=== PATIENT | female | born 1995 | race Caucasian/White ===

== ENCOUNTER 2019-04-21 15:42 | Emergency (ER) | payer BC ==
[2019-04-21 16:04] VITALS: BP 132/98
--- NOTE | 2019-04-21 16:24 | UC ---
UC General HPI - HPI Summary HPI Summary: has had diarrhea x 5 days, occasional nausea. she is able to eat bland foods and keep fluids down. no blood in stool.has had abdominal cramping. 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 - History of Current Complaint Chief Complaint: UCGI Stated Complaint: GI ISSUE Time Seen by Provider: 04/21/19 16:08 Hx Obtained From: Patient Hx Last Menstrual Period: 03/09/19 Onset/Duration: Gradual Onset Timing: Intermittent Episodes Lasting: Current Severity: None Pain Intensity: 0 Associated Signs & Symptoms: Positive: Diarrhea, Fever, Nausea. Negative: Dysuria, Decreased Oral Intake, Vomiting - Allergy/Home Medications Allergies/Adverse Reactions: Allergies Allergy/AdvReac Type Severity Reaction Status Date / Time shellfish derived Allergy Hives Verified 04/21/19 16:05 Home Medications: Home Medications Control Pill ? Name 1 tab PO DAILY 04/21/19 [History Confirmed 04/21/19] PMH/Surg Hx/FS Hx/Imm Hx Previously Healthy: Yes - Surgical History Surgical History: None - Social History Occupation: Student Lives: Dormitory/Roommates Alcohol Use: Occasionally Substance Use Type: None Smoking Status (MU): Never Smoked Tobacco Have You Smoked in the Last Year: No Review of Systems All Other Systems Reviewed And Are Negative: Yes Constitutional: Positive: Fever Skin: Positive: Negative. Negative: Rash Respiratory: Positive: Negative Cardiovascular: Positive: Negative Gastrointestinal: Positive: Diarrhea, Nausea Genitourinary: Positive: Negative Musculoskeletal: Positive: Negative. Negative: Arthralgia, Myalgia Neurological: Positive: Negative Psychological: Positive: Negative Is Patient Immunocompromised?: No Physical Exam Triage Information Reviewed: Yes Appearance: Well-Appearing, No Pain Distress, Well-Nourished Vital Signs: Initial Vital Signs Temp 99.3 F 04/21/19 16:01 Pulse 109 04/21/19 16:01 Resp 16 04/21/19 16:01 BP 132/98 04/21/19 16:01 Pulse Ox 100 04/21/19 16:01 Vital Signs Reviewed: Yes ENT Exam: Normal Respiratory Exam: Normal Respiratory: Positive: Lungs clear Cardiovascular Exam: Normal Cardiovascular: Positive: RRR Abdominal Exam: Normal Abdomen Description: Positive: Nontender, No Organomegaly, Soft Bowel Sounds: Positive: Present Neurological Exam: Normal Psychological Exam: Normal Skin Exam: Normal Course/Dx - Differential Dx - Multi-Symptom Differential Diagnoses: Urinary Tract Infection, Other - gastroenteritis - Diagnoses Provider Diagnosis: Diarrhea Discharge ED - Sign-Out/Discharge Documenting (check all that apply): Patient Departure All imaging exams completed and their final reports reviewed: No Studies - Discharge Plan Condition: Stable Disposition: HOME Patient Education Materials: Gastroenteritis (DC) Forms: *School Release Referrals: Brijesh Ray MD [Primary Care Provider] - 2 Days (if no better) Additional Instructions: Drink clear fluids and bland foods (as tolerated) Report to ER if you develop abdominal pain or your symptoms worsen at any time follow-up stool culture results - Billing Disposition and Condition Condition: STABLE Disposition: Home - Attestation Statements Provider Attestation: I was available for consult. This patient was seen by the [facility]. The patient was not presented to, seen by, or examined by me. -Elsa
--- NOTE | 2019-04-22 16:37 | UC ---
- Progress Note Progress Note: POSITIVE Cryptosporidium. -- treatment is supportive care. Rest. Fluids. Symptoms usually resolve within 7 days. Recheck if symptoms worsen or persist beyond that time Course/Dx - Diagnoses Provider Diagnoses: Diarrhea Discharge ED - Sign-Out/Discharge Documenting (check all that apply): Post-Discharge Follow Up All imaging exams completed and their final reports reviewed: No Studies - Discharge Plan Condition: Stable Disposition: HOME Patient Education Materials: Gastroenteritis (DC) Forms: *School Release Referrals: Brijesh aRy MD [Primary Care Provider] - 2 Days (if no better) Additional Instructions: Drink clear fluids and bland foods (as tolerated) Report to ER if you develop abdominal pain or your symptoms worsen at any time follow-up stool culture results - Billing Disposition and Condition Condition: STABLE Disposition: Home
--- NOTE | 2019-04-22 19:26 | UC ---
- Progress Note Progress Note: will ERx nitazoxide 500mg BID x 3 days Course/Dx - Diagnoses Provider Diagnoses: Diarrhea Discharge ED - Sign-Out/Discharge Documenting (check all that apply): Post-Discharge Follow Up All imaging exams completed and their final reports reviewed: No Studies - Discharge Plan Condition: Stable Disposition: HOME Prescriptions: Nitazoxanide [Alinia] 500 mg PO BID #6 tab Patient Education Materials: Gastroenteritis (DC) Forms: *School Release Referrals: Brijesh Ray MD [Primary Care Provider] - 2 Days (if no better) Additional Instructions: Drink clear fluids and bland foods (as tolerated) Report to ER if you develop abdominal pain or your symptoms worsen at any time follow-up stool culture results - Billing Disposition and Condition Condition: STABLE Disposition: Home
== END 2019-04-21 16:53 | disposition home or self-care (01) ==
LOC: UCEAST 15:42
DX: R19.7 Diarrhea, unspecified (principal); R11.0 Nausea; Z91.013 Allergy to seafood
CPT/HCPCS: 87045; 87046; 87177; 87209; 87328; 87329; 87899; 99211; G0463